=== PATIENT | female | born 1975 | race Caucasian/White ===

== ENCOUNTER 2018-12-29 11:42 | Observation (INO) | payer OTHER ==
[2018-12-29] MEDS ORDERED: Metoclopramide HCl 10 MG/2 ML VIAL ONE (12:04)
[2018-12-29] MEDS ORDERED: Dexamethasone 4 mg/ml Vial ONE ×2 (12:04→12:05)
[2018-12-29] MEDS ORDERED: Ketorolac Tromethamine 30 MG/ML VIAL ONE ×2 (12:04→12:06)
--- NOTE | 2018-12-29 12:27 | CT ---
Head CT without contrast 12/29/2018: COMPARISON: Double HISTORY: Right thigh tunnel vision, right arm tingling, slurred speech TECHNIQUE: Axial CT imaging at 5 mm intervals from vertex through skull base without contrast FINDINGS: Imaged paranasal sinuses and mastoid air cells demonstrate mild mucosal thickening of bilat eral ethmoid air cells. No displaced fracture or evidence of dislocation. No intracranial hemorrhage, midline shift, mass effect, or ventricular enlargement. IMPRESSION: No acute findings.
[2018-12-29 12:30] LABS: #Basophils 0.1 thou/uL (0.0-0.2); #Eosinphils 0.5 thou/uL (0.0-0.7); #Lymphocytes 2.5 thou/uL (1.20-3.40); #Monocytes 0.5 thou/uL (0.11-0.59); #Neutrophils 4.1 thou/uL (1.40-6.50); %Basophils 1.5 % (0.0-1.0); %Eosinophils 6.7 % (0.0-10.0); %Lymphocytes 32.8 % (21.0-51.0); Hemoglobin 12.6 g/dL (12.0-16.0); Mean Corpuscular HGB CONC 33.5 g/dL (32.0-36.0); Mean Corpuscular Hemoglobin 32.3 pg (27.0-31.0); Mean Corpuscular Volume 96.5 fL (78.0-98.0); Mean Platelet Volume 6.2 fL (7.4-10.4); Platelet Count 303 thou/uL (130-400); Red Blood Cell (RBC) Count 3.91 mill/uL (4.20-5.40); White Blood Cell (WBC) Count 7.7 thou/uL (4.8-10.8)
[2018-12-29 12:42] LABS: ALT (SGPT) 25 U/L (8-55); AST (SGOT) 22 U/L (5-34); Albumin 4.4 g/dL (3.5-5.0); Alkaline Phosphatase 63 U/L (40-150); Anion Gap 10 mmol/L (10-20); BUN (Urea Nitrogen) 13 mg/dL (7.0-18.7); Bilirubin, Total 0.2 mg/dL (0.2-1.2); Calc. Creatinine Clearance 0 mL/min (70-130); Carbon Dioxide 30 mmol/L (22-29); Chloride 100 mmol/L (98-107); Estimated GFR-MDRD 76; Globulin 3.4 g/dL (2.4-3.5); Glucose 85 mg/dL (70-105); Potassium 3.7 mmol/L (3.5-5.1); Protein, Total 7.8 g/dL (6.0-8.3); Sodium 136 mmol/L (136-145)
[2018-12-29] MEDS ORDERED: Aspirin Chewable 81 MG TAB ONE (13:10)
[2018-12-29] MEDS ORDERED: Ondansetron ODT 4 MG TAB SL PRN (16:57)
[2018-12-29] MEDS ORDERED: Ondansetron PF 4 MG/2 ML Vial IVP PRN ×2 (16:57→18:40)
[2018-12-29] MEDS ORDERED: Sodium Chloride 0.9% 1,000 ML IV SCH (16:57)
--- NOTE | 2018-12-29 17:37 | ULT ---
BILATERAL CAROTID DUPLEX ULTRASOUND: HISTORY: TIA TECHNIQUE: Grayscale, color-flow and spectral Doppler ultrasound imaging of the extracranial carotid artery syst ems and vertebral arteries was performed bilaterally. FINDINGS: No large amount of echogenic plaque is seen involving the common carotid or internal carotid arteries . The peak systolic velocity in the right ICA measures 64.3 cm/s. The peak systolic velocity in the ri ght CCA measures 72.4 cm/s. The peak systolic velocity in the left ICA measures 62.8 cm/s. The peak systolic velocity in the l eft CCA measures 88.6 cm/s. The right IC/CC ration is0.89. The left IC/CC ratio is 0.71. Vertebral flow: antegrade, bilaterally. . IMPRESSION: No hemodynamically significant stenosis of bilateral internal carotid arteries
[2018-12-29 17:47] VITALS: BMI 21.0
[2018-12-29] MEDS ORDERED: Acetaminophen 650 MG Suppository PR PRN (18:40)
[2018-12-29] MEDS ORDERED: Acetaminophen 325 MG TAB PO PRN (18:40)
[2018-12-29] MEDS ORDERED: Ondansetron ODT 4 MG TAB PO PRN (18:40)
[2018-12-29] MEDS ORDERED: Nicotine 14 MG PATCH TD SCH (18:45)
--- NOTE | 2018-12-29 19:48 | HP ---
PRIMARY CARE PROVIDER: MÓNICA Alas HISTORY OF PRESENT ILLNESS: Ms. Burch is a pleasant 43-year-old woman, who has been referred for possible TIA and states she developed sudden tunnel vision in the right eye followed by tingling and numbness in her right arm. She noticed her speech was slow, slurred, and she felt disoriented. She states this lasted approximately 1 hour before she began to experience a left-sided headache. She states it initially felt like a throbbing headache and gradually became severe and felt sharp. She states it remained constant and did not ease until she was given medications in the emergency department around 12:30. She was given Toradol, Reglan, Decadron, and aspirin in the ER. The patient had presented to the emergency department around noon and her symptoms started around 10 a.m. The patient states she was able to call her , and her speech was slow, but no longer confused. She called her primary care physician, who advised she come to the emergency department. The patient states she has a history of migraines, but has not had one in over a year and a half. She does not recall them being similar to this episode, though states she cannot remember. They stopped suddenly after she had her left tragus pierced. Her symptoms have fully resolved and she has no complaints at this present time. Denies any recent fevers, chills, or sweats. Reports having a good appetite. No drastic changes in her weight. No dizziness. No nausea or vomiting. No chest pain, palpitations, or shortness of breath. No abdominal pain or cramping. All other review of systems are negative. PAST MEDICAL HISTORY: 1. History of migraines. 2. Juvenile rheumatoid arthritis. 3. Depression/anxiety. PAST SURGICAL HISTORY: 1. Tubal ligation in 2008. 2. Ovarian cyst removal. SOCIAL HISTORY: The patient reports no alcohol consumption and denies any drug use. She did smoke cigarettes until 2 months ago. Currently, she vapes. FAMILY HISTORY: Hypertension, paternal history of cardiac disease (DC). PHYSICAL EXAMINATION: GENERAL: The patient appears well developed, well nourished, is in no acute distress. VITAL SIGNS: Temperature 98.1, blood pressure 116/77, pulse 66, respirations 16, O2 saturation 97% on room air. HEENT: Normocephalic and atraumatic. Pupils are equal, round, and reactive to light. Sclerae without icterus. Extraocular movements intact. No nystagmus present. Visual acosta intact. Oropharynx is clear. Mucous membranes moist. NECK: Supple. No nuchal rigidity. Full range of motion. CARDIAC: Regular rate and rhythm. No audible murmurs, rubs, or gallops. LUNGS: Clear to auscultation bilaterally without any wheezes, rales, or rhonchi. ABDOMEN: Soft, nontender, nondistended. Normoactive bowel sounds present. EXTREMITIES: No lower leg swelling or edema. NEUROLOGIC: Alert and oriented x3. Speech normal. Normal affect. Power 5/5 in all extremities with sensation intact. No cerebellar signs. No past-pointing. Reflexes normal. SKIN: Normal. Warm and dry. No rash or jaundice. LABORATORY DATA: White blood count 7.7, hemoglobin 12.6, hematocrit 37.7, platelets 303. Sodium 136, potassium 3.7, BUN 13, creatinine 0.82, GFR 76, calcium 10, glucose 85, total bilirubin 0.2, AST 22, ALT 25, alkaline phosphatase 63, total protein 7.8, and albumin 4.4. IMAGING DATA: 1. CT brain, no acute intracranial abnormalities. 2. Carotid Doppler study, no hemodynamically significant stenosis of bilateral internal carotid arteries. IMPRESSION AND PLAN: Ms. Burch is a pleasant 43-year-old woman, who has been referred for management of the following. 1. Possible transient ischemic attack. The patient with a history of migraines. However, today her symptoms she states are possibly different from migraine she has experienced in the past and occurred almost 1 hour before the left-sided headache started. She experienced right eye "tunnel vision" with right arm numbness and tingling as well as dysarthria/slurred speech. Her symptoms have fully resolved. Remaining investigations include an MRI of the brain. Consult has been placed to Neuro. 2. Severe headache. The patient with a history of migraines as stated above. Headache resolved quickly after she was given Decadron, Toradol, and Reglan in the emergency department. 3. Anxiety/depression. We will resume Lexapro. 4. Tobacco use. We will give nicotine patch. 5. Code status. Full code status. Her surrogate decision maker is her , Agapito Burch. The patient's case to be discussed with attending for further recommendations. Job ID: [id number]
[2018-12-29] MEDS ORDERED: Atorvastatin Calcium 40 MG TAB PO SCH (21:00)
[2018-12-29] MEDS: Famotidine/PF 20 mg/2ml Vial SLOW IVP SCH (21:52)
[2018-12-30 04:34] LABS: #Lymphocytes 1.3 thou/uL (1.20-3.40); #Monocytes 0.5 thou/uL (0.11-0.59); #Neutrophils 7.5 thou/uL (1.40-6.50); %Basophils 0.1 % (0.0-1.0); %Eosinophils 0.1 % (0.0-10.0); %Lymphocytes 14.1 % (21.0-51.0); %Monocytes 5.4 % (0.0-10.0); %Neutrophils 80.4 % (42.0-75.0); Hemoglobin 12.1 g/dL (12.0-16.0); Mean Corpuscular HGB CONC 34.4 g/dL (32.0-36.0); Mean Platelet Volume 6.1 fL (7.4-10.4); Platelet Count 272 thou/uL (130-400); RBC Distribution Width 10.9 % (11.5-14.5); Red Blood Cell (RBC) Count 3.56 mill/uL (4.20-5.40); White Blood Cell (WBC) Count 9.4 thou/uL (4.8-10.8)
[2018-12-30 04:49] LABS: Anion Gap 14 mmol/L (10-20); BUN (Urea Nitrogen) 15 mg/dL (7.0-18.7); Calc. Creatinine Clearance 94 mL/min (70-130); Calcium 9.8 mg/dL (7.8-10.44); Carbon Dioxide 20 mmol/L (22-29); Cardiac Risk 3.1 (Less than 4.5); Chloride 106 mmol/L (98-107); Cholesterol 181 mg/dl (< 200 Desired); Estimated GFR-MDRD 87; Glucose 124 mg/dL (70-105); HDL Cholesterol 59 mg/dL (>60 Neg Risk); LDL Cholesterol, Calculated 109 mg/dL; Potassium 4.2 mmol/L (3.5-5.1); Sodium 136 mmol/L (136-145); Triglycerides 63 mg/dL (Less than 150)
[2018-12-30] MEDS ORDERED: Escitalopram Oxalate 10 mg Tablet PO SCH (09:00)
[2018-12-30] MEDS ORDERED: Aspirin 81 mg Enteric Coated Tablet PO SCH (09:00)
[2018-12-30] MEDS: Famotidine/PF 20 mg/2ml Vial SLOW IVP SCH (09:41)
--- NOTE | 2018-12-30 10:35 | MRI ---
MRI BRAIN WITH AND WITHOUT CONTRAST: DATE: 12/30/18 HISTORY: 43-year-old female with TIA: tunnel vision and dysarthria. TECHNIQUE: Multiple sequences obtained in axial, sagittal, and coronal planes; pre and post IV injection of gado linium-based contrast agent: 11 mL MultiHance. FINDINGS: The ventricles are normal in size and configuration. There is no major intraaxial signal abnormality , restricted diffusion, abnormal intraaxial enhancement, mass, midline shift or any other mass effect , recent intraaxial hemorrhage, or extraaxial fluid collection. IMPRESSION: Normal. jn[] POS: [facility]
[2018-12-30 11:49] VITALS: BP 110/62; TEMP 98.3
== END 2018-12-30 12:57 | disposition home or self-care (01) ==
LOC: ERS 11:42 → 2SE 13:14
PROVIDERS: ADMIT Internal Medicine; ATTEND Internal Medicine
DX: G45.9 Transient cerebral ischemic attack, unspecified (principal); G43.909 Migraine, unspecified, not intractable, without status migrainosus; F41.9 Anxiety disorder, unspecified; F32.9 Major depressive disorder, single episode, unspecified; F17.290 Nicotine dependence, other tobacco product, uncomplicated; M08.00 Unspecified juvenile rheumatoid arthritis of unspecified site; Z79.899 Other long term (current) drug therapy
CPT/HCPCS: 36415; 70450; 70553; 80048; 80053; 80061; 85025; 90471; 90732; 93005; 93880; 96361; 96374; 96375; 96376; G0009; G0378; J1100; J1885; J2765; S0028